=== PATIENT | female | born 1990 | race Caucasian/White ===

== ENCOUNTER 2019-10-07 13:01 | Inpatient (IN) | payer BC ==
[~2019-10-07] VITALS: Ht 167.6 cm; Wt 97.7 kg
[2019-10-07] MEDS ORDERED: MAGNESIUM SULF. PMX 20GM/500ML 500 ML IV PRN (13:09)
[2019-10-07 13:44] LABS: BASOPHILS # (AUTO) 0.01 x10^3/uL (0-0.1); BASOPHILS % (AUTO) 0 % (0-1); EOSINOPHILS # (AUTO) 0.04 x10^3/uL (0-0.4); EOSINOPHILS % (AUTO) 0 % (1-7); LYMPHOCYTES # (AUTO) 1.28 x10^3/uL (1-3.4); LYMPHOCYTES % (AUTO) 11 % (22-44); MD NO; MEAN CORPUSCULAR HEMOGLOBIN 26.2 pg (27.0-34.8); MEAN CORPUSCULAR HGB CONC 32.3 g/dL (32.4-35.8); MEAN CORPUSCULAR VOLUME 81.3 fL (80-100); MEAN PLATELET VOLUME 9.6 fL (7.4-10.4); MONOCYTES # (AUTO) 0.22 x10^3/uL (0.2-0.8); MONOCYTES % (AUTO) 2 % (2-9); NEUTROPHILS # (AUTO) 10.07 x10^3/uL (1.8-6.8); NEUTROPHILS % (AUTO) 87 % (42-75); PLATELET COUNT 252 x10^3/uL (130-400); RED CELL DISTRIBUTION WIDTH 15.2 % (9.6-15.2)
[2019-10-07] MEDS ORDERED: ACETAMINOPHEN 325 MG TABLET ONE (13:55)
[2019-10-07 13:56] LABS: ALANINE AMINOTRANSFERASE 14 U/L (12-78); ALBUMIN 2.3 g/dL (3.4-5.0); ANION GAP 11 mmol/L (5-15); CALCIUM 8.4 mg/dL (8.5-10.1); CHLORIDE 109 mmol/L (98-107); CREATININE 0.78 mg/dL (0.55-1.02)
[2019-10-07] MEDS: ACETAMINOPHEN 325 MG TABLET PO PRN (13:58)
[2019-10-07 13:59] LABS: ALKALINE PHOSPHATASE 127 U/L (45-117); BILIRUBIN,TOTAL 0.5 mg/dL (0.2-1.0); TOTAL PROTEIN 6.2 g/dL (6.4-8.2)
[2019-10-07] MEDS ORDERED: MISOPROSTOL 25 MCG TABLET ONE (18:44)
[2019-10-07] MEDS: MISOPROSTOL 25 MCG TABLET VG PRN (18:53)
[2019-10-07] MEDS ORDERED: MAGNESIUM SULF. PMX 20GM/500ML 500 ML IV ONE (19:23)
[2019-10-07] MEDS ORDERED: OXYcodone/APAP 5/325MG TABLET ONE (19:57)
[2019-10-07] MEDS ORDERED: OXYcodone/APAP 5/325MG TABLET PO ONE (20:00)
[2019-10-07] MEDS ORDERED: INSULIN NPH HUMAN 100 UNIT/ML, 3ML VIAL SQ-INSULIN ONE (21:00)
[2019-10-07] MEDS: LACTATED RINGERS 1,000 ML IV PRN (23:12)
[2019-10-08] MEDS ORDERED: NEWBORN KIT ONE (00:10)
[2019-10-08] MEDS ORDERED: MISOPROSTOL 25 MCG TABLET ONE ×2 (01:16→20:16)
[2019-10-08] MEDS ORDERED: HYDROcodone/APAP 5/325 TABLET ONE (02:50)
[2019-10-08] MEDS ORDERED: HYDROcodone/APAP 5/325 TABLET PO ONE (03:00)
[2019-10-08] MEDS ORDERED: OXYTOCIN 30U/ 0.9% NaCL 500ML 500 ML ONE (06:25)
[2019-10-08] MEDS ORDERED: INSULIN LISPRO 100 UNIT/ML, 3ML VIAL SQ-INSULIN ONE ×2 (06:30→17:00)
[2019-10-08] MEDS: OXYTOCIN 30U/ 0.9% NaCL 500ML 500 ML IV PRN (06:36)
[2019-10-08] MEDS ORDERED: INSULIN NPH HUMAN 100 UNIT/ML, 3ML VIAL SQ-INSULIN ONE ×3 (08:30→21:00)
[2019-10-08] MEDS ORDERED: MAGNESIUM SULF. PMX 20GM/500ML 500 ML IV ONE (08:52)
[2019-10-08] MEDS: MAGNESIUM SULF. PMX 20GM/500ML 500 ML IV PRN (09:05)
[2019-10-08] MEDS ORDERED: BETAMETHASONE 6 MG/ML, 5ML IM ONE ×2 (10:51→11:00)
[2019-10-08] MEDS: LACTATED RINGERS 1,000 ML IV PRN ×2 (11:02→22:58)
[2019-10-08] MEDS ORDERED: ACETAMINOPHEN 325 MG TABLET ONE ×3 (15:27→19:35)
[2019-10-08] MEDS: ACETAMINOPHEN 325 MG TABLET PO PRN ×2 (15:29→21:11)
[2019-10-08 20:45] VITALS: BP 163/97
[2019-10-08] MEDS: MISOPROSTOL 25 MCG TABLET VG PRN (21:13)
[2019-10-09] MEDS ORDERED: MISOPROSTOL 25 MCG TABLET ONE ×3 (00:46→12:16)
[2019-10-09] MEDS: MISOPROSTOL 25 MCG TABLET VG PRN ×3 (01:41→12:24)
[2019-10-09] MEDS ORDERED: MAGNESIUM SULF. PMX 20GM/500ML 500 ML IV ONE ×2 (06:31→22:51)
[2019-10-09] MEDS: MAGNESIUM SULF. PMX 20GM/500ML 500 ML IV PRN ×2 (06:34→22:55)
[2019-10-09] MEDS ORDERED: LIDOCAINE 1%, 20ML ONE (06:46)
[2019-10-09] MEDS ORDERED: MISOPROSTOL 200 MCG TABLET ONE ×3 (06:46→23:07)
[2019-10-09] MEDS ORDERED: OXYTOCIN 30U/ 0.9% NaCL 500ML 500 ML ONE ×2 (06:46→20:30)
[2019-10-09 07:16] LABS: MEAN CORPUSCULAR HEMOGLOBIN 26.2 pg (27.0-34.8); MEAN CORPUSCULAR HGB CONC 31.8 g/dL (32.4-35.8); MEAN CORPUSCULAR VOLUME 82.3 fL (80-100); MEAN PLATELET VOLUME 9.6 fL (7.4-10.4); PLATELET COUNT 264 x10^3/uL (130-400); RED BLOOD COUNT 3.55 x10^6/uL (3.82-5.3); RED CELL DISTRIBUTION WIDTH 15.6 % (9.6-15.2)
[2019-10-09 07:19] LABS: ALANINE AMINOTRANSFERASE 13 U/L (12-78); ALBUMIN 2.1 g/dL (3.4-5.0); ANION GAP 7 mmol/L (5-15); CALCIUM 7.7 mg/dL (8.5-10.1); CHLORIDE 113 mmol/L (98-107); CREATININE 0.78 mg/dL (0.55-1.02)
[2019-10-09 07:21] LABS: ALKALINE PHOSPHATASE 109 U/L (45-117); BILIRUBIN,TOTAL 0.2 mg/dL (0.2-1.0); TOTAL PROTEIN 5.6 g/dL (6.4-8.2)
[2019-10-09 07:28] LABS: BASOPHILS % (AUTO) 0 % (0-1); EOSINOPHILS # (AUTO) 0.01 x10^3/uL (0-0.4); EOSINOPHILS % (AUTO) 0 % (1-7); LYMPHOCYTES # (AUTO) 1.43 x10^3/uL (1-3.4); LYMPHOCYTES % (AUTO) 8 % (22-44); MD SCAN; MONOCYTES # (AUTO) 0.65 x10^3/uL (0.2-0.8); MONOCYTES % (AUTO) 4 % (2-9); NEUTROPHILS # (AUTO) 15.59 x10^3/uL (1.8-6.8); NEUTROPHILS % (AUTO) 88 % (42-75)
[2019-10-09] MEDS: LACTATED RINGERS 1,000 ML IV PRN ×2 (08:52→16:39)
[2019-10-09] MEDS ORDERED: LABETALOL 200 MG TABLET PO SCH (15:30)
[2019-10-09] MEDS ORDERED: LABETALOL 5MG/ML, 20ML IVPush ONE (15:30)
[2019-10-09] MEDS ORDERED: METOCLOPRAMIDE 5 MG/ML, 2ML ONE (20:11)
[2019-10-09] MEDS ORDERED: FENTANYL PF 100 MCG/2ML ONE (20:15)
[2019-10-09] MEDS ORDERED: OXYTOCIN 10 UNITS/ML, 1ML ONE ×4 (20:15→20:16)
[2019-10-09] MEDS ORDERED: CEFAZOLIN 1,000 MG ONE ×2 (20:15)
[2019-10-09] MEDS ORDERED: SODIUM CITRATE/CITRIC ACID 30 ML UDC PO ONE (20:30)
[2019-10-09] MEDS ORDERED: CEFAZOLIN PMX 1GM/50ML 50 ML IVPB ONE (20:30)
[2019-10-09] MEDS ORDERED: ONDANSETRON 2MG/ML, 2ML IVPush ONE (20:30)
[2019-10-09] MEDS ORDERED: METOCLOPRAMIDE 5 MG/ML, 2ML IV ONE (20:30)
[2019-10-09] MEDS ORDERED: LACTATED RINGERS 1,000 ML IVBOLUS ONE (20:30)
[2019-10-09] MEDS ORDERED: AZITHROMYCIN 500 MG in SODIUM CHLORIDE 0.9% 250 ML IV ONE (20:30)
[2019-10-09] MEDS ORDERED: ONDANSETRON 2MG/ML, 2ML ONE (21:15)
[2019-10-09] MEDS ORDERED: OXYTOCIN 30U/ 0.9% NaCL 500ML 500 ML IV SCH (22:01)
[2019-10-09] MEDS: LACTATED RINGERS 1,000 ML IV SCH ×2 (22:01→23:41)
[2019-10-09] MEDS ORDERED: OXYcodone 5 MG/5 ML ORAL.SOL UDC PO PRN (22:30)
[2019-10-09] MEDS ORDERED: ONDANSETRON 2MG/ML, 2ML IVPush PRN (22:30)
[2019-10-09] MEDS ORDERED: ONDANSETRON 2MG/ML, 2ML IV PRN (22:30)
[2019-10-09] MEDS ORDERED: PROMETHAZINE 25 MG/ML, 1ML IVPush PRN (22:30)
[2019-10-09] MEDS ORDERED: MISOPROSTOL 200 MCG TABLET PR PRN (22:30)
[2019-10-09] MEDS ORDERED: hydrALAzine 20 MG/ML, 1ML IV PRN (22:30)
[2019-10-09] MEDS ORDERED: CARBOPROST TROMETHAMINE 250 MCG/ML, 1ML IM PRN (22:30)
[2019-10-09] MEDS ORDERED: FENTANYL PF 100 MCG/2ML IV PRN (22:30)
[2019-10-09] MEDS ORDERED: LABETALOL 5MG/ML, 20ML IV PRN (22:30)
[2019-10-09] MEDS ORDERED: DIPHENHYDRAMINE 50 MG/ML, 1ML IVPush PRN (22:30)
[2019-10-09] MEDS ORDERED: OXYcodone 5 MG/5 ML ORAL.SOL UDC ONE (22:51)
[2019-10-09] MEDS: OXYTOCIN 30U/ 0.9% NaCL 500ML 500 ML IV PRN (23:13)
[2019-10-09] MEDS ORDERED: MORPHINE SULFATE 4 MG/ML, 1ML ONE (23:35)
[2019-10-09] MEDS: morphine SULFATE 10 MG/ML, 1ML IVPush PRN (23:38)
[2019-10-10] MEDS ORDERED: MORPHINE SULFATE 4 MG/ML, 1ML ONE (00:01)
[2019-10-10] MEDS: morphine SULFATE 10 MG/ML, 1ML IVPush PRN (00:04)
[2019-10-10] MEDS ORDERED: FENTANYL PF 100 MCG/2ML ONE (00:54)
[2019-10-10] MEDS ORDERED: OXYTOCIN 30U/ 0.9% NaCL 500ML 500 ML ONE (01:15)
[2019-10-10] MEDS ORDERED: HYDROmorphone 2 MG/ML, 1ML ONE ×5 (01:34→23:35)
[2019-10-10] MEDS ORDERED: HYDROmorphone 2 MG/ML, 1ML IVPush PRN (02:00)
[2019-10-10] MEDS ORDERED: niFEDipine ER 60 MG TABLET.ER PO ONE ×2 (02:35→11:51)
[2019-10-10] MEDS: niFEDipine ER 60 MG TABLET.ER PO SCH ×2 (02:39→11:53)
[2019-10-10 03:35] LABS: ALBUMIN 1.9 g/dL (3.4-5.0); ANION GAP 6 mmol/L (5-15); CALCIUM 7.2 mg/dL (8.5-10.1); CHLORIDE 109 mmol/L (98-107)
[2019-10-10 03:38] LABS: ALANINE AMINOTRANSFERASE 25 U/L (12-78); ALKALINE PHOSPHATASE 122 U/L (45-117); BILIRUBIN,TOTAL 0.3 mg/dL (0.2-1.0); CREATININE 0.74 mg/dL (0.55-1.02); TOTAL PROTEIN 5.2 g/dL (6.4-8.2)
[2019-10-10] MEDS ORDERED: hydrALAzine 20 MG/ML, 1ML ONE ×2 (03:38→19:37)
[2019-10-10 03:53] LABS: MEAN CORPUSCULAR HEMOGLOBIN 26.2 pg (27.0-34.8); MEAN CORPUSCULAR HGB CONC 32.1 g/dL (32.4-35.8); MEAN CORPUSCULAR VOLUME 81.5 fL (80-100); MEAN PLATELET VOLUME 9.9 fL (7.4-10.4); PLATELET COUNT 272 x10^3/uL (130-400); RED CELL DISTRIBUTION WIDTH 15.4 % (9.6-15.2)
[2019-10-10] MEDS ORDERED: hydrALAzine 20 MG/ML, 1ML IV ONE ×2 (04:00→20:00)
[2019-10-10 04:32] LABS: MD YES
[2019-10-10 04:34] LABS: BAND#(MANUAL) 0.22 x10^3/uL; BANDS%(MANUAL) 1 % (0-7); EOS#(MANUAL) 0.22 x10^3/uL (0.0-0.4); EOS% (MANUAL) 1 % (1-7); LYMPH#(MANUAL) 4.42 x10^3/uL (1-3.4); LYMPHS% (MANUAL) 20 % (22-44); MONOS#(MANUAL) 1.33 x10^3/uL (0.3-2.7); MONOS% (MANUAL) 6 % (2-9); SEG#(MANUAL) 15.91 x10^3/uL (1.8-6.8); SEGS% (MANUAL) 72 % (42-75)
[2019-10-10 04:35] LABS: ANISOCYTOSIS 1+; HYPOCHROMIA 1+
[2019-10-10 04:36] LABS: <PLATELET ESTIMATE> ADEQUATE; <PLT MORPHOLOGY> NORMAL PLT MORPH; POLYCHROMASIA 1+
[2019-10-10] MEDS ORDERED: OXYcodone/APAP 5/325MG TABLET ONE (04:48)
[2019-10-10] MEDS: OXYcodone/APAP 5/325MG TABLET PO PRN (04:58)
[2019-10-10 07:15] VITALS: BP 120/73
[2019-10-10] MEDS: LACTATED RINGERS 1,000 ML IV SCH ×3 (08:01→18:29)
[2019-10-10] MEDS ORDERED: OXYcodone IR 5MG TABLET ONE ×4 (08:55→21:20)
[2019-10-10] MEDS: OXYcodone IR 5MG TABLET PO PRN ×4 (08:57→21:22)
[2019-10-10] MEDS ORDERED: PRENATAL VIT/IRON/FA 1 EACH TABLET ONE (09:56)
[2019-10-10] MEDS ORDERED: DOCUSATE 100 MG CAPSULE ONE ×2 (09:56→16:57)
[2019-10-10] MEDS ORDERED: FERROUS GLUCONATE 324 MG TABLET ONE (09:58)
[2019-10-10] MEDS: PRENATAL VIT/IRON/FA 1 EACH TABLET PO SCH (10:00)
[2019-10-10] MEDS: DOCUSATE 100 MG CAPSULE PO SCH ×2 (10:00→16:59)
[2019-10-10] MEDS: FERROUS GLUCONATE 324 MG TABLET PO SCH (10:01)
[2019-10-10] MEDS: HYDROmorphone 1 MG/ML, 1ML INJ IV PRN ×2 (10:02→15:31)
[2019-10-10] MEDS ORDERED: MAGNESIUM SULF. PMX 20GM/500ML 500 ML IV ONE (16:24)
[2019-10-10] MEDS: MAGNESIUM SULF. PMX 20GM/500ML 500 ML IV PRN (16:26)
[2019-10-10] MEDS: HYDROmorphone 2 MG/ML, 1ML IV PRN ×2 (18:53→23:38)
[2019-10-10] MEDS ORDERED: ACETAMINOPHEN 325 MG TABLET ONE (21:20)
[2019-10-10] MEDS: ACETAMINOPHEN 325 MG TABLET PO PRN (21:22)
[2019-10-11] MEDS: ACETAMINOPHEN 325 MG TABLET PO PRN ×5 (03:26→20:53)
[2019-10-11] MEDS: OXYcodone IR 5MG TABLET PO PRN ×5 (03:26→20:53)
[2019-10-11] MEDS ORDERED: HYDROmorphone 2 MG/ML, 1ML ONE ×2 (04:01→09:13)
[2019-10-11] MEDS: LACTATED RINGERS 1,000 ML IV SCH ×2 (04:01→13:02)
[2019-10-11] MEDS: HYDROmorphone 2 MG/ML, 1ML IV PRN (04:06)
[2019-10-11 06:06] LABS: ALBUMIN 2.1 g/dL (3.4-5.0); ANION GAP 4 mmol/L (5-15); CALCIUM 8.4 mg/dL (8.5-10.1); CHLORIDE 106 mmol/L (98-107)
[2019-10-11 06:10] LABS: ALANINE AMINOTRANSFERASE 29 U/L (12-78); ALKALINE PHOSPHATASE 123 U/L (45-117); BILIRUBIN,TOTAL 0.2 mg/dL (0.2-1.0); CREATININE 0.69 mg/dL (0.55-1.02); TOTAL PROTEIN 5.9 g/dL (6.4-8.2)
[2019-10-11 06:36] LABS: BASOPHILS # (AUTO) 0.04 x10^3/uL (0-0.1); BASOPHILS % (AUTO) 0 % (0-1); EOSINOPHILS # (AUTO) 0.06 x10^3/uL (0-0.4); EOSINOPHILS % (AUTO) 0 % (1-7); LYMPHOCYTES # (AUTO) 2.51 x10^3/uL (1-3.4); LYMPHOCYTES % (AUTO) 17 % (22-44); MD NO; MEAN CORPUSCULAR HGB CONC 31.8 g/dL (32.4-35.8); MEAN CORPUSCULAR VOLUME 81.8 fL (80-100); MEAN PLATELET VOLUME 8.8 fL (7.4-10.4); MONOCYTES % (AUTO) 5 % (2-9); NEUTROPHILS # (AUTO) 11.54 x10^3/uL (1.8-6.8); NEUTROPHILS % (AUTO) 78 % (42-75); PLATELET COUNT 299 x10^3/uL (130-400); RED BLOOD COUNT 3.84 x10^6/uL (3.82-5.3); RED CELL DISTRIBUTION WIDTH 15.6 % (9.6-15.2)
[2019-10-11] MEDS ORDERED: FERROUS GLUCONATE 324 MG TABLET ONE (07:17)
[2019-10-11] MEDS ORDERED: DOCUSATE 100 MG CAPSULE ONE (07:18)
[2019-10-11] MEDS ORDERED: PRENATAL VIT/IRON/FA 1 EACH TABLET ONE (07:18)
[2019-10-11] MEDS ORDERED: OXYcodone/APAP 5/325MG TABLET ONE (07:18)
[2019-10-11] MEDS ORDERED: OXYcodone IR 5MG TABLET ONE ×4 (07:18→20:52)
[2019-10-11] MEDS ORDERED: niFEDipine ER 60 MG TABLET.ER PO ONE (07:18)
[2019-10-11] MEDS: DOCUSATE 100 MG CAPSULE PO SCH (07:42)
[2019-10-11] MEDS: PRENATAL VIT/IRON/FA 1 EACH TABLET PO SCH (07:42)
[2019-10-11] MEDS: FERROUS GLUCONATE 324 MG TABLET PO SCH (07:43)
[2019-10-11] MEDS: niFEDipine ER 60 MG TABLET.ER PO SCH (07:45)
[2019-10-11] MEDS: OXYcodone/APAP 5/325MG TABLET PO PRN (07:46)
[2019-10-11] MEDS ORDERED: hydrALAzine 20 MG/ML, 1ML ONE (08:25)
[2019-10-11] MEDS ORDERED: hydrALAzine 20 MG/ML, 1ML IV ONE ×2 (08:30→09:30)
[2019-10-11] MEDS ORDERED: ACETAMINOPHEN 325 MG TABLET ONE ×4 (09:13→20:52)
[2019-10-11] MEDS ORDERED: LABETALOL 5MG/ML, 20ML IVPush ONE (10:30)
[2019-10-11] MEDS ORDERED: LABETALOL 5MG/ML, 20ML ONE ×2 (10:30→20:32)
[2019-10-11 16:23] VITALS: BP 157/84
[2019-10-11 20:30] VITALS: BP 185/100
[2019-10-11] MEDS ORDERED: LABETALOL 100 MG TABLET ONE (20:32)
[2019-10-11] MEDS ORDERED: LABETALOL 5MG/ML, 20ML IVPush STA (20:42)
[2019-10-11] MEDS ORDERED: LABETALOL 200 MG TABLET PO SCH (21:00)
[2019-10-11 21:08] VITALS: BP 151/98
[2019-10-11 22:35] VITALS: BP 153/87
[2019-10-12] MEDS: LACTATED RINGERS 1,000 ML IV SCH (00:01)
[2019-10-12] MEDS ORDERED: OXYcodone IR 5MG TABLET ONE ×4 (03:17→21:53)
[2019-10-12] MEDS ORDERED: ACETAMINOPHEN 325 MG TABLET ONE ×5 (03:17→21:53)
[2019-10-12] MEDS: OXYcodone IR 5MG TABLET PO PRN ×5 (03:19→21:56)
[2019-10-12] MEDS: DOCUSATE 100 MG CAPSULE PO SCH ×2 (03:20→21:00)
[2019-10-12] MEDS: ACETAMINOPHEN 325 MG TABLET PO PRN ×4 (03:20→21:56)
[2019-10-12] MEDS ORDERED: FERROUS GLUCONATE 324 MG TABLET ONE (07:27)
[2019-10-12] MEDS ORDERED: PRENATAL VIT/IRON/FA 1 EACH TABLET ONE (07:27)
[2019-10-12] MEDS ORDERED: LABETALOL 100 MG TABLET ONE ×2 (07:28→18:34)
[2019-10-12] MEDS ORDERED: niFEDipine ER 30 MG TABLET.ER ONE (07:28)
[2019-10-12] MEDS ORDERED: niFEDipine ER 60 MG TABLET.ER PO ONE (07:30)
[2019-10-12] MEDS: FERROUS GLUCONATE 324 MG TABLET PO SCH (07:35)
[2019-10-12] MEDS: niFEDipine ER 60 MG TABLET.ER PO SCH (07:35)
[2019-10-12] MEDS: LABETALOL 100 MG TABLET PO SCH ×2 (07:35→18:37)
[2019-10-12] MEDS: PRENATAL VIT/IRON/FA 1 EACH TABLET PO SCH (07:35)
[2019-10-12 09:21] VITALS: BP 120/70
[2019-10-12 12:23] LABS: AMPHETAMINE SCREEN, URINE Negative (Negative); BARBITURATE SCREEN, URINE Positive (Negative); BENZODIAZEPINE SCREEN, URINE Negative (Negative); CANNABINOID SCREEN, URINE Negative (Negative); COCAINE SCREEN, URINE Negative (Negative); METHADONE SCREEN, URINE Negative (Negative); OPIATE SCREEN, URINE Negative (Negative)
[2019-10-12 19:30] VITALS: BP 150/90
[2019-10-12 20:18] VITALS: BP 137/88
[2019-10-12] MEDS ORDERED: DOCUSATE 100 MG CAPSULE ONE (20:58)
[2019-10-12 21:44] VITALS: BP 152/85
[2019-10-13] MEDS ORDERED: OXYcodone IR 5MG TABLET ONE ×4 (04:20→21:54)
[2019-10-13] MEDS ORDERED: ACETAMINOPHEN 325 MG TABLET ONE ×3 (04:20→17:06)
[2019-10-13] MEDS: OXYcodone IR 5MG TABLET PO PRN ×4 (04:23→21:56)
[2019-10-13] MEDS: ACETAMINOPHEN 325 MG TABLET PO PRN ×3 (04:23→17:09)
[2019-10-13 06:06] LABS: ALBUMIN 2.1 g/dL (3.4-5.0); ANION GAP 8 mmol/L (5-15); CALCIUM 8.4 mg/dL (8.5-10.1); CHLORIDE 110 mmol/L (98-107)
[2019-10-13 06:10] LABS: ALANINE AMINOTRANSFERASE 56 U/L (12-78); ALKALINE PHOSPHATASE 105 U/L (45-117); BILIRUBIN,TOTAL 0.3 mg/dL (0.2-1.0); CREATININE 0.69 mg/dL (0.55-1.02); TOTAL PROTEIN 5.8 g/dL (6.4-8.2)
[2019-10-13 06:14] LABS: BASOPHILS # (AUTO) 0.04 x10^3/uL (0-0.1); BASOPHILS % (AUTO) 0 % (0-1); EOSINOPHILS # (AUTO) 0.51 x10^3/uL (0-0.4); EOSINOPHILS % (AUTO) 5 % (1-7); LYMPHOCYTES # (AUTO) 2.72 x10^3/uL (1-3.4); LYMPHOCYTES % (AUTO) 24 % (22-44); MD NO; MEAN CORPUSCULAR HEMOGLOBIN 26.3 pg (27.0-34.8); MEAN CORPUSCULAR HGB CONC 32.1 g/dL (32.4-35.8); MEAN PLATELET VOLUME 8.3 fL (7.4-10.4); MONOCYTES # (AUTO) 0.54 x10^3/uL (0.2-0.8); MONOCYTES % (AUTO) 5 % (2-9); NEUTROPHILS # (AUTO) 7.67 x10^3/uL (1.8-6.8); NEUTROPHILS % (AUTO) 67 % (42-75); PLATELET COUNT 309 x10^3/uL (130-400)
[2019-10-13] MEDS ORDERED: LABETALOL 100 MG TABLET ONE ×2 (06:27→18:05)
[2019-10-13] MEDS: LABETALOL 100 MG TABLET PO SCH ×2 (06:31→18:06)
[2019-10-13] MEDS ORDERED: DOCUSATE 100 MG CAPSULE ONE ×2 (07:40→19:31)
[2019-10-13] MEDS ORDERED: PRENATAL VIT/IRON/FA 1 EACH TABLET ONE (07:40)
[2019-10-13] MEDS ORDERED: FERROUS GLUCONATE 324 MG TABLET ONE (07:40)
[2019-10-13] MEDS ORDERED: niFEDipine ER 60 MG TABLET.ER PO ONE (07:40)
[2019-10-13] MEDS: FERROUS GLUCONATE 324 MG TABLET PO SCH (07:55)
[2019-10-13] MEDS: DOCUSATE 100 MG CAPSULE PO SCH ×3 (07:55→19:33)
[2019-10-13] MEDS: PRENATAL VIT/IRON/FA 1 EACH TABLET PO SCH (07:56)
[2019-10-13 08:28] VITALS: BP 129/79
[2019-10-13] MEDS: niFEDipine ER 60 MG TABLET.ER PO SCH (09:30)
[2019-10-13 19:13] VITALS: BP 133/91
[2019-10-13 22:13] VITALS: BP 130/83
[2019-10-14] VITALS (9 sets, daily range): BP systolic 112–153; BP diastolic 55–103
[2019-10-14] MEDS ORDERED: OXYcodone/APAP 5/325MG TABLET ONE ×6 (01:10→23:02)
[2019-10-14] MEDS: OXYcodone/APAP 5/325MG TABLET PO PRN ×6 (01:13→23:04)
[2019-10-14] MEDS ORDERED: LABETALOL 100 MG TABLET ONE ×2 (05:42→19:05)
[2019-10-14] MEDS: LABETALOL 100 MG TABLET PO SCH ×2 (05:43→19:12)
[2019-10-14 06:24] LABS: ALBUMIN 2.3 g/dL (3.4-5.0); ANION GAP 8 mmol/L (5-15); CALCIUM 9.5 mg/dL (8.5-10.1); CHLORIDE 113 mmol/L (98-107)
[2019-10-14 06:29] LABS: ALANINE AMINOTRANSFERASE 89 U/L (12-78); ALKALINE PHOSPHATASE 111 U/L (45-117); BILIRUBIN,TOTAL 0.3 mg/dL (0.2-1.0); CREATININE 0.68 mg/dL (0.55-1.02); TOTAL PROTEIN 6.1 g/dL (6.4-8.2)
[2019-10-14] MEDS ORDERED: PRENATAL VIT/IRON/FA 1 EACH TABLET ONE (09:08)
[2019-10-14] MEDS ORDERED: FERROUS GLUCONATE 324 MG TABLET ONE (09:08)
[2019-10-14] MEDS ORDERED: DOCUSATE 100 MG CAPSULE ONE ×2 (09:09→21:00)
[2019-10-14] MEDS ORDERED: niFEDipine ER 60 MG TABLET.ER PO ONE (09:09)
[2019-10-14] MEDS: DOCUSATE 100 MG CAPSULE PO SCH ×2 (09:11→21:03)
[2019-10-14] MEDS: FERROUS GLUCONATE 324 MG TABLET PO SCH (09:11)
[2019-10-14] MEDS: niFEDipine ER 60 MG TABLET.ER PO SCH (09:11)
[2019-10-14] MEDS: PRENATAL VIT/IRON/FA 1 EACH TABLET PO SCH (09:11)
[2019-10-14] MEDS ORDERED: OXYcodone IR 5MG TABLET ONE (09:37)
[2019-10-14] MEDS: OXYcodone IR 5MG TABLET PO PRN (09:40)
[2019-10-14] MEDS ORDERED: MAGNESIUM SULF. PMX 20GM/500ML 500 ML IV ONE ×2 (13:41→21:00)
[2019-10-14] MEDS ORDERED: LACTATED RINGERS 1,000 ML IV PRN (14:19)
[2019-10-14] MEDS: MAGNESIUM SULF. PMX 20GM/500ML 500 ML IV PRN ×2 (14:26→21:05)
[2019-10-14] MEDS ORDERED: MAGNESIUM SULFATE PMX 4GM/100M 100 ML IVPB ONE (14:30)
[2019-10-14 14:39] LABS: ALANINE AMINOTRANSFERASE 86 U/L (12-78); ALBUMIN 2.4 g/dL (3.4-5.0); ANION GAP 7 mmol/L (5-15); CALCIUM 9.1 mg/dL (8.5-10.1); CHLORIDE 111 mmol/L (98-107); CREATININE 0.87 mg/dL (0.55-1.02)
[2019-10-14 14:42] LABS: ALKALINE PHOSPHATASE 119 U/L (45-117); BILIRUBIN,TOTAL 0.3 mg/dL (0.2-1.0); TOTAL PROTEIN 6.4 g/dL (6.4-8.2)
[2019-10-14 14:46] LABS: BASOPHILS # (AUTO) 0.04 x10^3/uL (0-0.1); BASOPHILS % (AUTO) 0 % (0-1); EOSINOPHILS # (AUTO) 0.52 x10^3/uL (0-0.4); EOSINOPHILS % (AUTO) 5 % (1-7); LYMPHOCYTES # (AUTO) 2.33 x10^3/uL (1-3.4); LYMPHOCYTES % (AUTO) 22 % (22-44); MD NO; MEAN CORPUSCULAR HEMOGLOBIN 26.3 pg (27.0-34.8); MEAN CORPUSCULAR HGB CONC 32.2 g/dL (32.4-35.8); MEAN CORPUSCULAR VOLUME 81.6 fL (80-100); MONOCYTES # (AUTO) 0.68 x10^3/uL (0.2-0.8); MONOCYTES % (AUTO) 6 % (2-9); NEUTROPHILS # (AUTO) 6.95 x10^3/uL (1.8-6.8); NEUTROPHILS % (AUTO) 66 % (42-75); PLATELET COUNT 377 x10^3/uL (130-400); RED BLOOD COUNT 3.45 x10^6/uL (3.82-5.3); RED CELL DISTRIBUTION WIDTH 16.1 % (9.6-15.2)
[2019-10-15] MEDS ORDERED: OXYcodone/APAP 5/325MG TABLET ONE ×4 (04:35→17:26)
[2019-10-15] MEDS: OXYcodone/APAP 5/325MG TABLET PO PRN ×5 (04:40→21:35)
[2019-10-15 04:42] VITALS: BP 160/75
[2019-10-15] MEDS ORDERED: LABETALOL 100 MG TABLET ONE (04:59)
[2019-10-15] MEDS: LABETALOL 100 MG TABLET PO SCH ×2 (05:15→17:59)
[2019-10-15 06:09] LABS: BASOPHILS # (AUTO) 0.05 x10^3/uL (0-0.1); BASOPHILS % (AUTO) 1 % (0-1); EOSINOPHILS # (AUTO) 0.34 x10^3/uL (0-0.4); EOSINOPHILS % (AUTO) 4 % (1-7); LYMPHOCYTES # (AUTO) 2.45 x10^3/uL (1-3.4); LYMPHOCYTES % (AUTO) 27 % (22-44); MD NO; MEAN CORPUSCULAR HEMOGLOBIN 25.8 pg (27.0-34.8); MEAN CORPUSCULAR HGB CONC 31.2 g/dL (32.4-35.8); MEAN CORPUSCULAR VOLUME 82.8 fL (80-100); MEAN PLATELET VOLUME 7.5 fL (7.4-10.4); MONOCYTES # (AUTO) 0.49 x10^3/uL (0.2-0.8); MONOCYTES % (AUTO) 5 % (2-9); NEUTROPHILS % (AUTO) 64 % (42-75); PLATELET COUNT 405 x10^3/uL (130-400); RED CELL DISTRIBUTION WIDTH 16.2 % (9.6-15.2)
[2019-10-15 06:58] LABS: ALANINE AMINOTRANSFERASE 73 U/L (12-78); ALBUMIN 2.4 g/dL (3.4-5.0); ANION GAP 8 mmol/L (5-15); CALCIUM 7.3 mg/dL (8.5-10.1); CHLORIDE 107 mmol/L (98-107); CREATININE 0.69 mg/dL (0.55-1.02)
[2019-10-15 07:00] LABS: ALKALINE PHOSPHATASE 121 U/L (45-117); BILIRUBIN,TOTAL 0.3 mg/dL (0.2-1.0); TOTAL PROTEIN 6.5 g/dL (6.4-8.2)
[2019-10-15] MEDS ORDERED: FERROUS GLUCONATE 324 MG TABLET ONE (07:48)
[2019-10-15] MEDS ORDERED: PRENATAL VIT/IRON/FA 1 EACH TABLET ONE (07:49)
[2019-10-15] MEDS ORDERED: MAGNESIUM SULF. PMX 20GM/500ML 500 ML IV ONE (07:52)
[2019-10-15] MEDS: MAGNESIUM SULF. PMX 20GM/500ML 500 ML IV PRN (08:05)
[2019-10-15 08:15] VITALS: BP 113/74
[2019-10-15] MEDS: PRENATAL VIT/IRON/FA 1 EACH TABLET PO SCH (08:29)
[2019-10-15] MEDS: FERROUS GLUCONATE 324 MG TABLET PO SCH (08:30)
[2019-10-15] MEDS ORDERED: niFEDipine ER 60 MG TABLET.ER PO ONE (08:33)
[2019-10-15] MEDS: niFEDipine ER 60 MG TABLET.ER PO SCH (08:34)
[2019-10-15] MEDS: DOCUSATE 100 MG CAPSULE PO SCH ×2 (09:00→21:35)
[2019-10-15 14:00] VITALS: BP 108/61
[2019-10-15 17:58] VITALS: BP 117/71
[2019-10-15 21:07] VITALS: BP 119/82
[2019-10-15] MEDS: SIMETHICONE 80 MG CHEW TAB PO PRN (21:35)
[2019-10-16] VITALS (7 sets, daily range): BP systolic 89–121; BP diastolic 54–84
[2019-10-16] MEDS: OXYcodone/APAP 5/325MG TABLET PO PRN ×4 (05:02→21:03)
[2019-10-16] MEDS: SIMETHICONE 80 MG CHEW TAB PO PRN ×3 (05:02→22:13)
[2019-10-16] MEDS: LABETALOL 100 MG TABLET PO SCH (05:02)
[2019-10-16 05:42] LABS: BASOPHILS # (AUTO) 0.04 x10^3/uL (0-0.1); BASOPHILS % (AUTO) 0 % (0-1); EOSINOPHILS # (AUTO) 0.24 x10^3/uL (0-0.4); EOSINOPHILS % (AUTO) 3 % (1-7); LYMPHOCYTES # (AUTO) 2.58 x10^3/uL (1-3.4); LYMPHOCYTES % (AUTO) 27 % (22-44); MD NO; MEAN CORPUSCULAR HGB CONC 31.5 g/dL (32.4-35.8); MEAN CORPUSCULAR VOLUME 82.5 fL (80-100); MEAN PLATELET VOLUME 7.4 fL (7.4-10.4); MONOCYTES # (AUTO) 0.53 x10^3/uL (0.2-0.8); MONOCYTES % (AUTO) 6 % (2-9); NEUTROPHILS # (AUTO) 6.19 x10^3/uL (1.8-6.8); NEUTROPHILS % (AUTO) 65 % (42-75); PLATELET COUNT 429 x10^3/uL (130-400); RED CELL DISTRIBUTION WIDTH 16.3 % (9.6-15.2)
[2019-10-16 05:54] LABS: CHLORIDE 110 mmol/L (98-107)
[2019-10-16 06:04] LABS: ALANINE AMINOTRANSFERASE 57 U/L (12-78); ALBUMIN 2.4 g/dL (3.4-5.0); ALKALINE PHOSPHATASE 119 U/L (45-117); ANION GAP 6 mmol/L (5-15); BILIRUBIN,TOTAL 0.4 mg/dL (0.2-1.0); CALCIUM 7.8 mg/dL (8.5-10.1); CREATININE 0.78 mg/dL (0.55-1.02); TOTAL PROTEIN 6.3 g/dL (6.4-8.2)
[2019-10-16] MEDS: PRENATAL VIT/IRON/FA 1 EACH TABLET PO SCH (08:21)
[2019-10-16] MEDS: ACETAMINOPHEN 325 MG TABLET PO PRN ×3 (08:21→16:42)
[2019-10-16] MEDS: niFEDipine ER 60 MG TABLET.ER PO SCH (08:21)
[2019-10-16] MEDS: FERROUS GLUCONATE 324 MG TABLET PO SCH (08:21)
[2019-10-16] MEDS: DOCUSATE 100 MG CAPSULE PO SCH ×2 (08:21→21:05)
[2019-10-16 11:28] LABS: ALBUMIN 2.5 g/dL (3.4-5.0); ANION GAP 7 mmol/L (5-15); CALCIUM 8.2 mg/dL (8.5-10.1); CHLORIDE 110 mmol/L (98-107)
[2019-10-16 11:32] LABS: ALANINE AMINOTRANSFERASE 53 U/L (12-78); ALKALINE PHOSPHATASE 119 U/L (45-117); BILIRUBIN,TOTAL 0.4 mg/dL (0.2-1.0); CREATININE 0.96 mg/dL (0.55-1.02); TOTAL PROTEIN 6.5 g/dL (6.4-8.2)
[2019-10-17] VITALS: BP 108/63
[2019-10-17 04:00] VITALS: BP 124/86
[2019-10-17] MEDS: OXYcodone/APAP 5/325MG TABLET PO PRN ×3 (04:18→12:25)
[2019-10-17 07:21] VITALS: BP 121/70
[2019-10-17] MEDS: FERROUS GLUCONATE 324 MG TABLET PO SCH (08:01)
[2019-10-17] MEDS: SIMETHICONE 80 MG CHEW TAB PO PRN ×2 (08:01→12:25)
[2019-10-17] MEDS: DOCUSATE 100 MG CAPSULE PO SCH (08:01)
[2019-10-17] MEDS: PRENATAL VIT/IRON/FA 1 EACH TABLET PO SCH (08:01)
[2019-10-17] MEDS: niFEDipine ER 60 MG TABLET.ER PO SCH (08:03)
[2019-10-17 12:29] VITALS: BP 106/65
[2019-10-17] MEDS ORDERED: DOCU-131 PO (13:31)
[2019-10-17] MEDS ORDERED: OXYC-302 PO (13:31)
[2019-10-17] MEDS ORDERED: FERR324T5 PO (13:31)
== END 2019-10-17 14:50 | disposition home or self-care (01) | DRG 788 ==
LOC: LDIP 13:01 → 2NE 10-09 23:57 → 2NW 10-15 20:12
PROVIDERS: ADMIT Obstetrics & Gynecology Maternal & Fetal Medicine; ATTEND Obstetrics & Gynecology Maternal & Fetal Medicine
PROC: 0U7C7ZZ Dilation of Cervix, Via Natural or Artificial Opening (ICD-10-PCS; 2019-10-07)
PROC: 10D00Z1 Extraction of Products of Conception, Low, Open Approach (ICD-10-PCS; principal; 2019-10-09)
DX: O14.14 Severe pre-eclampsia complicating childbirth (principal); O24.424 Gestational diabetes mellitus in childbirth, insulin controlled; F43.10 Post-traumatic stress disorder, unspecified; O77.0 Labor and delivery complicated by meconium in amniotic fluid; O99.02 Anemia complicating childbirth; O61.9 Failed induction of labor, unspecified; D50.9 Iron deficiency anemia, unspecified; O99.344 Other mental disorders complicating childbirth; Z20.828 Contact with and (suspected) exposure to other viral communicable diseases; Z37.0 Single live birth; Z3A.34 34 weeks gestation of pregnancy
CPT/HCPCS: 36415; 80053; 80307; 82728; 82803; 82962; 83540; 83550; 83615; 83735; 84156; 84550; 85014; 85018; 85025; 86592; 86850; 86900; 87635; 93005; G0378; J0456; J0690; J0702; J1170; J1815; J2405; J3010; J0360; J2270; J2590; J2765; J3475; J7050; J7120